=== PATIENT | male | born 1945 | race Two or more races ===

== ENCOUNTER 2020-03-29 15:03 | Inpatient (IN) | payer OTHER, MEDICAID ==
[~2020-03-29] VITALS: Ht 172.7 cm; Wt 83.2 kg
[2020-03-29 16:13] LABS: Basophils # (auto) 0 10 ^3/uL (0-0.2); Basophils % (auto) 0.3 % (0.0-2.0); Eosinophils # (auto) 0 10 ^3/uL (0-0.8); Hematocrit 43.5 % (41.0-53.0); Hemoglobin 15.9 g/dL (13.5-17.5); Lymphocytes # (auto) 1.6 10 ^3/uL (0.4-5.4); Lymphocytes % (auto) 25.1 % (10.0-50.0); Mean Corpuscular Hemoglobin 30.9 pg (28.0-32.0); Mean Corpuscular Hgb Conc. 36.5 g/dL (32.0-36.0); Mean Corpuscular Volume 84.7 fL (80.0-100.0); Monocytes # (auto) 0.3 10 ^3/uL (0-1.3); Monocytes % (auto) 5.1 % (0.0-12.0); Neutrophils # (auto) 4.3 10 ^3/uL (1.6-8.6); Neutrophils % (auto) 69.5 % (37.0-80.0); Nucleated Red Blood Cells % 0.5 %; Red Blood Cells 5.13 10^6/uL (4.5-5.90); White Blood Cell 6.3 10^3/uL (4.4-10.8)
[2020-03-29 16:14] LABS: Anion Gap 6 (5-15); Blood Urea Nitrogen 12 mg/dL (7-18); Calcium 8.4 mg/dL (8.5-10.1); Carbon Dioxide 27 mmol/L (21-32); Chloride 98 mmol/L (98-107); Glucose 253 mg/dL (74-106); Potassium 3.1 mmol/L (3.5-5.1); Sodium 131 mmol/L (136-145)
[2020-03-29 16:20] LABS: Alanine Aminotransferase 56 U/L (16-61); Alkaline Phosphatase 66 U/L (45-117); Aspartate Aminotransferase 66 U/L (15-37); Bilirubin, Total 0.5 mg/dL (0.2-1.0); GFR African American 112 mL/min; GFR Non-African American 93 mL/min; Total Protein 7.9 g/dL (6.4-8.2)
[2020-03-29 21:16] LABS: Calcium 8.4 mg/dL (8.5-10.1)
[2020-03-29 21:22] LABS: Bilirubin, Total 0.5 mg/dL (0.2-1.0)
[2020-03-30] MEDS ORDERED: DOCUSATE SOD 100 MG CAP PO PRN (04:45)
[2020-03-30] MEDS ORDERED: ONDANSETRON HCL 4 MG/2 ML VIAL IV PRN (04:45)
[2020-03-30] MEDS: SODIUM CHLORIDE 0.9% 1,000 ML IV SCH ×2 (04:45→22:22)
[2020-03-30] MEDS ORDERED: MORPHINE SULFATE INJECTION 2 MG/ML SYRG IV PRN (04:45)
[2020-03-30] MEDS ORDERED: NITROGLYCERIN 0.4 MG SL TAB SL PRN (04:45)
[2020-03-30] MEDS ORDERED: DEXTROSE (50%) 50ML SYRG IV PRN (04:45)
[2020-03-30] MEDS ORDERED: HYDROcodone-ACET 5/325MG TAB PO PRN (04:45)
[2020-03-30] MEDS ORDERED: ACETAMINOPHEN 500 MG TAB PO PRN (04:45)
[2020-03-30] MEDS ORDERED: POTASSIUM CHL 20 Meq TABLET PO ONE (05:00)
[2020-03-30] MEDS: ACCU-CHEK COMFORT CURVE STRIP VI SCH ×4 (07:44→22:23)
[2020-03-30] MEDS: InsuLIN REG 1unit/0.01ml Soln (100units/ml) SC SCH ×4 (07:48→22:24)
[2020-03-30] MEDS: ENOXAPARIN SOD 40 MG/0.4 ML SYRINGE SC SCH (09:48)
[2020-03-30] MEDS: FAMOTIDINE (10MG/ML) 2ML VL IV SCH ×2 (09:48→22:22)
[2020-03-30] MEDS: DexAMETHasone SOD PHOS 10MG/1ML VIAL INJ IV SCH (09:48)
[2020-03-30] MEDS: ASCORBIC ACID 1,000 MG TAB PO SCH (09:48)
[2020-03-30] MEDS: ZINC SULFATE 220mg CAP or TAB PO SCH (09:48)
[2020-03-30] MEDS: CHOLECALCIFEROL (VITD3) 2,000 UNIT CAP/TAB PO SCH (09:48)
[2020-03-30] MEDS: MULTIPLE VITAMIN TAB PO SCH (09:48)
[2020-03-30] MEDS: BUDESONIDE (INHALATION) 180 MCG IH IN SCH ×2 (10:00→22:00)
[2020-03-30] MEDS: DOXYCYCLINE 100MG/250ML 250 ML IV SCH ×2 (10:24→22:23)
[2020-03-30] MEDS ORDERED: POTASSIUM EFFERVESENT TAB 25 MEQ PO ONE (15:15)
[2020-03-30] MEDS ORDERED: REMDESIVIR PER PHARMACY 0 ML IV SCH (15:15)
[2020-03-30] MEDS ORDERED: REMDESIVIR 200 MG in NS 210ml LOADING DOSE ADULT IV ONE (18:00)
[2020-03-30] MEDS: INSULIN LANTUS (GLARGINE) 1 /0.01ml (100units/ml) SC SCH (22:23)
[2020-03-31 01:52] VITALS: BP 117/67
[2020-03-31] MEDS: InsuLIN REG 1unit/0.01ml Soln (100units/ml) SC SCH ×4 (06:25→21:42)
[2020-03-31] MEDS: ACCU-CHEK COMFORT CURVE STRIP VI SCH ×4 (06:25→21:38)
[2020-03-31] MEDS: ALBUTEROL SULF HFA 90MCG INH 200DOSE IN PRN ×2 (07:28→19:39)
[2020-03-31] MEDS: BUDESONIDE (INHALATION) 180 MCG IH IN SCH ×2 (07:28→19:39)
[2020-03-31 08:00] VITALS: BP 93/56
[2020-03-31 10:39] LABS: Basophils # (auto) 0 10 ^3/uL (0-0.2); Basophils % (auto) 0.1 % (0.0-2.0); Eosinophils # (auto) 0 10 ^3/uL (0-0.8); Hematocrit 42.3 % (41.0-53.0); Lymphocytes # (auto) 1.1 10 ^3/uL (0.4-5.4); Lymphocytes % (auto) 24.2 % (10.0-50.0); Mean Corpuscular Hemoglobin 30.4 pg (28.0-32.0); Mean Corpuscular Hgb Conc. 35.4 g/dL (32.0-36.0); Mean Corpuscular Volume 85.9 fL (80.0-100.0); Monocytes # (auto) 0.5 10 ^3/uL (0-1.3); Monocytes % (auto) 10.7 % (0.0-12.0); Neutrophils # (auto) 2.8 10 ^3/uL (1.6-8.6); Nucleated Red Blood Cells % 0.1 %; Red Blood Cells 4.92 10^6/uL (4.5-5.90); Red Cell Distribution Width 14.1 % (11.8-14.3); White Blood Cell 4.3 10^3/uL (4.4-10.8)
[2020-03-31] MEDS: DexAMETHasone SOD PHOS 10MG/1ML VIAL INJ IV SCH (10:46)
[2020-03-31] MEDS: DOXYCYCLINE 100MG/250ML 250 ML IV SCH ×2 (10:46→21:40)
[2020-03-31] MEDS: ZINC SULFATE 220mg CAP or TAB PO SCH (10:47)
[2020-03-31] MEDS: MULTIPLE VITAMIN TAB PO SCH (10:47)
[2020-03-31] MEDS: ENOXAPARIN SOD 40 MG/0.4 ML SYRINGE SC SCH (10:47)
[2020-03-31] MEDS: FAMOTIDINE (10MG/ML) 2ML VL IV SCH ×2 (10:47→22:48)
[2020-03-31] MEDS: ASCORBIC ACID 1,000 MG TAB PO SCH (10:47)
[2020-03-31] MEDS: CHOLECALCIFEROL (VITD3) 2,000 UNIT CAP/TAB PO SCH (10:47)
[2020-03-31 10:57] LABS: Albumin 2.7 g/dL (3.4-5.0); Calcium 8.9 mg/dL (8.5-10.1); Potassium 3.9 mmol/L (3.5-5.1)
[2020-03-31 11:00] LABS: BUN/Creatinine Ratio 18.7; Bilirubin, Total 0.6 mg/dL (0.2-1.0); Total Protein 7.3 g/dL (6.4-8.2)
[2020-03-31] MEDS: SODIUM CHLORIDE 0.9% 1,000 ML IV SCH (14:51)
[2020-03-31] MEDS ORDERED: REMDESIVIR 200 MG in NS 210ml LOADING DOSE ADULT IV ONE (15:00)
[2020-03-31] MEDS ORDERED: REMDESIVIR 100mg 100 MG in SODIUM CHL 0.9% 230 ML IV SCH (15:00)
[2020-03-31 15:42] VITALS: BP 118/73
[2020-03-31] MEDS: INSULIN LANTUS (GLARGINE) 1 /0.01ml (100units/ml) SC SCH (21:42)
[2020-03-31] MEDS: TEMAZEPAM 15 MG CAP PO PRN (22:31)
[2020-04-01] VITALS (7 sets, daily range): BP systolic 101–124; BP diastolic 58–71
[2020-04-01] MEDS: SODIUM CHLORIDE 0.9% 1,000 ML IV SCH (06:14)
[2020-04-01] MEDS: ACCU-CHEK COMFORT CURVE STRIP VI SCH ×4 (06:27→22:05)
[2020-04-01] MEDS: InsuLIN REG 1unit/0.01ml Soln (100units/ml) SC SCH ×4 (06:28→22:07)
[2020-04-01 07:20] LABS: Basophils # (auto) 0 10 ^3/uL (0-0.2); Basophils % (auto) 0.2 % (0.0-2.0); Eosinophils # (auto) 0 10 ^3/uL (0-0.8); Hemoglobin 13.4 g/dL (13.5-17.5); Lymphocytes # (auto) 1.1 10 ^3/uL (0.4-5.4); Lymphocytes % (auto) 19.6 % (10.0-50.0); Mean Corpuscular Hemoglobin 30.2 pg (28.0-32.0); Mean Corpuscular Hgb Conc. 35.4 g/dL (32.0-36.0); Mean Corpuscular Volume 85.3 fL (80.0-100.0); Monocytes # (auto) 0.4 10 ^3/uL (0-1.3); Monocytes % (auto) 7.2 % (0.0-12.0); Neutrophils # (auto) 4.2 10 ^3/uL (1.6-8.6); Nucleated Red Blood Cells % 0.1 %; Red Blood Cells 4.45 10^6/uL (4.5-5.90); Red Cell Distribution Width 13.9 % (11.8-14.3); White Blood Cell 5.7 10^3/uL (4.4-10.8)
[2020-04-01] MEDS: ALBUTEROL SULF HFA 90MCG INH 200DOSE IN PRN ×2 (07:20→21:46)
[2020-04-01] MEDS: BUDESONIDE (INHALATION) 180 MCG IH IN SCH ×2 (07:20→21:46)
[2020-04-01 07:47] LABS: Potassium 3.4 mmol/L (3.5-5.1)
[2020-04-01 08:10] LABS: Albumin 2.6 g/dL (3.4-5.0); BUN/Creatinine Ratio 20.9; Bilirubin, Total 0.6 mg/dL (0.2-1.0); CRP High Sensitivity 2.55 mg/dL (< 0.3); Calcium 8.4 mg/dL (8.5-10.1); Total Protein 6.8 g/dL (6.4-8.2)
[2020-04-01] MEDS: DOXYCYCLINE 100MG/250ML 250 ML IV SCH ×2 (09:27→22:04)
[2020-04-01] MEDS: DexAMETHasone SOD PHOS 10MG/1ML VIAL INJ IV SCH (09:27)
[2020-04-01] MEDS: FAMOTIDINE (10MG/ML) 2ML VL IV SCH ×2 (09:28→22:04)
[2020-04-01] MEDS: ZINC SULFATE 220mg CAP or TAB PO SCH (09:28)
[2020-04-01] MEDS: CHOLECALCIFEROL (VITD3) 2,000 UNIT CAP/TAB PO SCH (09:28)
[2020-04-01] MEDS: MULTIPLE VITAMIN TAB PO SCH (09:28)
[2020-04-01] MEDS: ASCORBIC ACID 1,000 MG TAB PO SCH (09:28)
[2020-04-01] MEDS: ENOXAPARIN SOD 40 MG/0.4 ML SYRINGE SC SCH ×2 (09:29→22:05)
[2020-04-01] MEDS ORDERED: POTASSIUM CHL 20 Meq TABLET PO ONE (14:30)
[2020-04-01] MEDS ORDERED: FUROSEMIDE 40 MG/4 ML VIAL IV ONE (14:30)
[2020-04-01] MEDS: REMDESIVIR 100mg 100 MG in SODIUM CHL 0.9% 230 ML IV SCH (15:17)
[2020-04-01] MEDS: INSULIN LANTUS (GLARGINE) 1 /0.01ml (100units/ml) SC SCH (22:06)
[2020-04-02] VITALS: BP 104/58
[2020-04-02] MEDS: TEMAZEPAM 15 MG CAP PO PRN (01:43)
[2020-04-02] MEDS: ACCU-CHEK COMFORT CURVE STRIP VI SCH ×4 (06:54→21:30)
[2020-04-02] MEDS: InsuLIN REG 1unit/0.01ml Soln (100units/ml) SC SCH ×4 (06:55→21:29)
[2020-04-02 07:10] LABS: Potassium 3.5 mmol/L (3.5-5.1)
[2020-04-02 07:26] LABS: Albumin 2.5 g/dL (3.4-5.0); BUN/Creatinine Ratio 26.2; Bilirubin, Total 0.6 mg/dL (0.2-1.0); Calcium 8.3 mg/dL (8.5-10.1); Total Protein 6.6 g/dL (6.4-8.2)
[2020-04-02 08:00] VITALS: BP 106/59
[2020-04-02] MEDS: ALBUTEROL SULF HFA 90MCG INH 200DOSE IN PRN ×2 (08:36→19:11)
[2020-04-02] MEDS: BUDESONIDE (INHALATION) 180 MCG IH IN SCH ×2 (08:36→19:11)
[2020-04-02] MEDS: DexAMETHasone SOD PHOS 10MG/1ML VIAL INJ IV SCH (09:54)
[2020-04-02] MEDS: FUROSEMIDE 40 MG/4 ML VIAL IV SCH (09:55)
[2020-04-02] MEDS: ZINC SULFATE 220mg CAP or TAB PO SCH (09:55)
[2020-04-02] MEDS: FAMOTIDINE (10MG/ML) 2ML VL IV SCH (09:55)
[2020-04-02] MEDS: DOXYCYCLINE 100MG/250ML 250 ML IV SCH (09:55)
[2020-04-02] MEDS: MULTIPLE VITAMIN TAB PO SCH (09:55)
[2020-04-02] MEDS: ASCORBIC ACID 1,000 MG TAB PO SCH (09:56)
[2020-04-02] MEDS: POTASSIUM CHL 20 Meq TABLET PO SCH (09:56)
[2020-04-02] MEDS: ENOXAPARIN SOD 40 MG/0.4 ML SYRINGE SC SCH ×2 (09:56→21:28)
[2020-04-02] MEDS: CHOLECALCIFEROL (VITD3) 2,000 UNIT CAP/TAB PO SCH (09:56)
[2020-04-02] MEDS: REMDESIVIR 100mg 100 MG in SODIUM CHL 0.9% 230 ML IV SCH (15:00)
[2020-04-02 16:00] VITALS: BP 126/75
[2020-04-02] MEDS: FAMOTIDINE 20 MG TAB PO SCH (21:27)
[2020-04-02] MEDS: DOXYCYCLINE 100 MG TAB/CAP PO SCH (21:27)
[2020-04-02] MEDS: INSULIN LANTUS (GLARGINE) 1 /0.01ml (100units/ml) SC SCH (21:29)
[2020-04-03] VITALS: BP 123/72
[2020-04-03] MEDS: ACCU-CHEK COMFORT CURVE STRIP VI SCH ×4 (06:07→21:36)
[2020-04-03] MEDS: InsuLIN REG 1unit/0.01ml Soln (100units/ml) SC SCH ×4 (06:07→21:39)
[2020-04-03 07:06] LABS: Basophils # (auto) 0 10 ^3/uL (0-0.2); Basophils % (auto) 0.3 % (0.0-2.0); Eosinophils # (auto) 0 10 ^3/uL (0-0.8); Eosinophils % (auto) 0.4 % (0.0-7.0); Hematocrit 40.4 % (41.0-53.0); Hemoglobin 14.6 g/dL (13.5-17.5); Lymphocytes # (auto) 1.8 10 ^3/uL (0.4-5.4); Lymphocytes % (auto) 22.3 % (10.0-50.0); Mean Corpuscular Hemoglobin 30.8 pg (28.0-32.0); Mean Corpuscular Hgb Conc. 36.1 g/dL (32.0-36.0); Mean Corpuscular Volume 85.3 fL (80.0-100.0); Monocytes # (auto) 0.4 10 ^3/uL (0-1.3); Monocytes % (auto) 4.6 % (0.0-12.0); Neutrophils # (auto) 5.8 10 ^3/uL (1.6-8.6); Neutrophils % (auto) 72.4 % (37.0-80.0); Nucleated Red Blood Cells % 0.3 %; Red Blood Cells 4.73 10^6/uL (4.5-5.90); Red Cell Distribution Width 13.8 % (11.8-14.3)
[2020-04-03 07:23] LABS: Albumin 2.8 g/dL (3.4-5.0); Calcium 8.4 mg/dL (8.5-10.1); Potassium 3.2 mmol/L (3.5-5.1)
[2020-04-03 07:33] LABS: Bilirubin, Total 0.8 mg/dL (0.2-1.0); CRP High Sensitivity 3.62 mg/dL (< 0.3); Total Protein 7.3 g/dL (6.4-8.2)
[2020-04-03 08:00] VITALS: BP 119/67
[2020-04-03] MEDS: BUDESONIDE (INHALATION) 180 MCG IH IN SCH ×2 (09:50→19:22)
[2020-04-03] MEDS: ASCORBIC ACID 1,000 MG TAB PO SCH (10:27)
[2020-04-03] MEDS: POTASSIUM CHL 20 Meq TABLET PO SCH (10:27)
[2020-04-03] MEDS: MULTIPLE VITAMIN TAB PO SCH (10:27)
[2020-04-03] MEDS: DexAMETHasone SOD PHOS 10MG/1ML VIAL INJ IV SCH (10:27)
[2020-04-03] MEDS: DOXYCYCLINE 100 MG TAB/CAP PO SCH ×2 (10:27→21:27)
[2020-04-03] MEDS: FAMOTIDINE 20 MG TAB PO SCH ×2 (10:28→21:27)
[2020-04-03] MEDS: ZINC SULFATE 220mg CAP or TAB PO SCH (10:28)
[2020-04-03] MEDS: ENOXAPARIN SOD 40 MG/0.4 ML SYRINGE SC SCH ×2 (10:28→21:28)
[2020-04-03] MEDS: CHOLECALCIFEROL (VITD3) 2,000 UNIT CAP/TAB PO SCH (10:28)
[2020-04-03] MEDS: FUROSEMIDE 40 MG/4 ML VIAL IV SCH (10:28)
[2020-04-03] MEDS ORDERED: POTASSIUM CHL 20 Meq TABLET PO ONE (11:45)
[2020-04-03] MEDS ORDERED: ERGOCALCIFEROL 50,000 UNIT(1.25MG) CAP PO SCH (11:45)
[2020-04-03 14:00] VITALS: BP 121/75
[2020-04-03] MEDS: REMDESIVIR 100mg 100 MG in SODIUM CHL 0.9% 230 ML IV SCH (15:36)
[2020-04-03 16:00] VITALS: BP 121/75
[2020-04-03] MEDS: ALBUTEROL SULF HFA 90MCG INH 200DOSE IN PRN (19:22)
[2020-04-03] MEDS: INSULIN LANTUS (GLARGINE) 1 /0.01ml (100units/ml) SC SCH (21:37)
[2020-04-03 23:32] VITALS: BP 121/69
[2020-04-04] MEDS: ACCU-CHEK COMFORT CURVE STRIP VI SCH ×3 (06:10→17:08)
[2020-04-04] MEDS: InsuLIN REG 1unit/0.01ml Soln (100units/ml) SC SCH ×3 (06:10→17:08)
[2020-04-04] MEDS: ALBUTEROL SULF HFA 90MCG INH 200DOSE IN PRN (06:35)
[2020-04-04] MEDS: BUDESONIDE (INHALATION) 180 MCG IH IN SCH ×2 (06:37→08:54)
[2020-04-04 08:00] VITALS: BP 110/64
[2020-04-04] MEDS: ZINC SULFATE 220mg CAP or TAB PO SCH (09:47)
[2020-04-04] MEDS: ASCORBIC ACID 1,000 MG TAB PO SCH (09:47)
[2020-04-04] MEDS: CHOLECALCIFEROL (VITD3) 2,000 UNIT CAP/TAB PO SCH (09:47)
[2020-04-04] MEDS: POTASSIUM CHL 20 Meq TABLET PO SCH (09:47)
[2020-04-04] MEDS: ENOXAPARIN SOD 40 MG/0.4 ML SYRINGE SC SCH (09:48)
[2020-04-04] MEDS: MULTIPLE VITAMIN TAB PO SCH (09:48)
[2020-04-04] MEDS: FUROSEMIDE 40 MG/4 ML VIAL IV SCH (09:48)
[2020-04-04] MEDS: DexAMETHasone SOD PHOS 10MG/1ML VIAL INJ IV SCH (09:49)
[2020-04-04] MEDS: DOXYCYCLINE 100 MG TAB/CAP PO SCH (09:49)
[2020-04-04] MEDS: FAMOTIDINE 20 MG TAB PO SCH (09:49)
[2020-04-04 12:23] VITALS: BP 110/64
[2020-04-04] MEDS: REMDESIVIR 100mg 100 MG in SODIUM CHL 0.9% 230 ML IV SCH (15:06)
[2020-04-04 16:00] VITALS: BP 108/71
== END 2020-04-04 17:30 | disposition home or self-care (01) | DRG 177 ==
LOC: ER 15:03 → TELE 15:04 → TELE-WESTW 03-31 01:52
PROVIDERS: ADMIT Nurse Practitioner Family; ATTEND Internal Medicine
PROC: XW033E5 Introduction of Remdesivir Anti-infective into Peripheral Vein, Percutaneous Approach, New Technology Group 5 (ICD-10-PCS; 2020-03-31)
PROC: XW13325 Transfusion of Convalescent Plasma (Nonautologous) into Peripheral Vein, Percutaneous Approach, New Technology Group 5 (ICD-10-PCS; principal; 2020-04-01)
DX: U07.1 COVID-19 (principal); J12.82 Pneumonia due to coronavirus disease 2019; J96.01 Acute respiratory failure with hypoxia; E87.1 Hypo-osmolality and hyponatremia; E87.6 Hypokalemia; E11.65 Type 2 diabetes mellitus with hyperglycemia; D89.839 Cytokine release syndrome, grade unspecified; D69.6 Thrombocytopenia, unspecified; I10 Essential (primary) hypertension; E55.9 Vitamin D deficiency, unspecified; Z79.82 Long term (current) use of aspirin; Z79.899 Other long term (current) drug therapy
CPT/HCPCS: 36415; 71045; 80053; 82306; 82728; 82962; 83036; 83605; 83615; 83735; 84443; 84484; 85025; 85379; 86141; 86850; 86900; 86901; 87040; 87426; 93005; 93970; 94640; G0378; J1100; J1815; J3490